=== PATIENT | female | born 1970 | race Caucasian/White ===

== ENCOUNTER 2024-10-14 18:48 | Emergency (ER) | payer OTHER, SELFPAY ==
[2024-10-14 18:56] VITALS: BP 124/62; PULSE 62; RESP 16; TEMP 36.2; O2SAT 94
--- OUTSIDE RECORDS SUMMARY | 2024-10-14 18:56 | XMS_ITS | Referral Summary ---
Author Organization [facility] Healthcare Address [address] [place] [address] Care Team Providers Care Fast Food Sales Assistant Name Role Phone Sohail Moura MD Unavailable [phone] Pam Fabian NP Primary Care Provider Encounters Date Type Department Care Team Description 07/26/2024 Results Follow-Up [facility] [address] [place] [address] Sofi Ryan RN 07/26/2024 11:29 AM ICE SKATING TEACHER - 07/26/2024 2:42 PM ICE SKATING TEACHER Emergency [facility] [address] [place] [address] Maricruz Anderson MD SVT (supraventricular tachycardia) (Primary Dx) Discharge Disposition: Discharge to home or self care from Last 3 Months Allergies Active Allergy Reactions Criticality Noted Date Comments Adhesive Rash Medium 09/14/2021 Medications acetaminophen (TYLENOL) 325 mg tablet daily [address] (CYMBALTA) 60 mg capsule Take 1 capsule (60 mg total) by mouth daily 0 Active atorvastatin (LIPITOR) 20 mg tablet Take 1 tablet (20 mg total) by mouth daily 2 Active folic acid (FOLVITE) 1 mg tablet Take 1 tablet (1 mg total) by mouth daily 2 Active latanoprost (XALATAN) 0.005 % ophthalmic solution Administer 1 drop into both eyes nightly 1 Active sertraline (ZOLOFT) 100 mg tablet Take 1 tablet (100 mg total) by mouth daily 2 Active topiramate (TOPAMAX) 50 mg tablet Take 1 tablet (50 mg total) by mouth 2 (two) times a day 2 Active cholecalciferol (VITAMIN D-3) 50,000 unit capsule Take 1 capsule (50,000 Units total) by mouth once a week Active busPIRone (BUSPAR) 15 mg tabletIndications: Generalized Anxiety Disorder Take 1 tablet (15 mg total) by mouth 4 (four) times a day Active rOPINIRole (REQUIP) 0.5 mg tablet Take 1 tablet (0.5 mg total) by mouth 2 (two) times a day Active ondansetron ODT (ZOFRAN-ODT) 4 mg disintegrating tablet Dissolve 1 tablet oral every 4 hours as needed for nausea or vomiting. 15 tablet 3 Active traZODone (DESYREL) 50 mg tablet Take 2 tablets (100 mg total) by mouth nightly 3 Active flecainide (TAMBOCOR) 50 mg tabletIndications: Paroxysmal atrial fibrillation (HCC) Take 1 tablet (50 mg total) by mouth 2 (two) times a day 60 tablet 11 4 Active apixaban (ELIQUIS) 5 mg tabletIndications: atrial fibrillation Take 1 tablet (5 mg total) by mouth 2 (two) times a day 180 tablet 3 4 Active naproxen (NAPROSYN) 500 mg tablet Take 1 tablet (500 mg total) by mouth 2 (two) times a day with meals 30 tablet 4 Active methocarbamoL (ROBAXIN) 500 mg tablet Take 1 tablet (500 mg total) by mouth 2 (two) times a day 20 tablet 4 Active metoprolol tartrate (LOPRESSOR) 50 mg immediate release tabletIndications: Paroxysmal atrial fibrillation (HCC) Take 1 tablet (50 mg total) by mouth 2 (two) times a day 60 tablet 4 Active HYDROcodone-acetam inophen (NORCO) 5-325 mg per tabletIndications: Pain Take 1 tablet by mouth every 6 (six) hours as needed for pain for up to 10 doses 10 tablet 5 Active mupirocin (BACTROBAN) 2 % ointment Apply topically 3 (three) times a day 22 g 5 Active naproxen (NAPROSYN) 500 mg tablet Take 1 tablet (500 mg total) by mouth 2 (two) times a day with meals 30 tablet 5 Active metoprolol tartrate (LOPRESSOR) 50 mg immediate release tablet Take 1 tablet (50 mg total) by mouth 2 (two) times a day 60 tablet 5 Active Active Problems Problem Noted Date Diagnosed Date Chest discomfort 10/16/2022 Morbid (severe) obesity due to excess calories 0 06/19/2022 Body mass index 40.0-44.9, adult ([facility]) 06/19 Palpitations 06/18/2022 SVT (supraventricular tachycardia) 06/18/2022 Paroxysmal atrial fibrillation 06/18/2022 Acute maxillary sinusitis 06/16/2020 Suspected COVID-19 virus infection 06/16/2020 Anxiety 12/15/2019 Cervical strain, acute, initial encounter 2019 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 I recommend that you stop using ALL acetaminophen containing products and discuss this with your provider immediately. No one should ever take more than 3000 mg total of all acetaminophen in a 24 hour period of time, but with your history, you probably should not take any at all until you have further evaluation. Follow up as soon as possible with your primary care provider or ER if symptoms develop or worsen Body mass index (BMI) of 40.0-44.9 in adult 10/06 Overview (11/10/2019): Last Assessment & Plan: Condition: patient reports improvement Educated patient on normal BMI range of 18.5 to 24.9 Advised to monitor nutrition to not exceed caloric needs, or as indicated by PCP in order to maintain a healthy weight and BMI. Advised to engage in aerobic physical activity, if indicated to be safe by PCP, to assist with maintaining a healthy weight and BMI. Advised to follow up with PCP to address nutrition as needed to assist with reaching or maintaining a healthy weight and BMI. Follow up in: one month Chronic right shoulder pain 10/22/2019 Overview (11/10/2019): Last Assessment & Plan: Condition: stable Follow up in: one month Financial difficulties 10/22/2019 Overview (11/10/2019): Last Assessment & Plan: Condition: stable Follow up in: one month Major depressive disorder 10/22/2019 Overview (11/10/2019): Last Assessment & Plan: Condition: stable No recent mental health visit. Advised to follow up Take medications as ordered by Provider; notify Provider if you cannot take medications as ordered or are having difficulties or side-effects from medications (do not stop medications without notifying Provider). If symptoms worsen or do not improve/stabilize, notify health care provider right away. If thoughts of harming self or others notify health care provider immediately &/or seek urgent/emergent care including calling Suicide Hotline ( ) or 081. Follow up in one month with Psychologist/Counselor/SupportGroup/Psychiatrist and PCP Seasonal allergies 10/22/2019 Overview (11/10/2019): Grass, worse this time of year Last Assessment & Plan: Condition: worsening, due to season I recommend you take an over the counter allergy medicine IF not contraindicated by your primary care provider. There are many different allergy medicines such as loratadine, cetrizine, Zyzal, benadryl or generic Flonase (fluticason) nasal spray. Some of these medicines can make you sleepy so don't drive until you know how they affect you. You may try to take them at night before bed. Many people have good results with allergy nasal sprays (NOT decongestant nasal sprays). When using an allergy nasal spray, tilt the head down and spray to the sides of the nose. Do a gently sniff to help the medicine coat the mucous membranes of the nasal cavity. You don't want to taste the medicine going down your throat because that is not getting where it will be the most effective. Use daily during allergy season for the most effectiveness. If you find that you are too dry because of the nasal spray, try using every other day. Other things you can do to help with seasonal allergies are; not sleeping with windows open. Be sure to change your air filters on your furnace and air conditioner regularly and rinsing your nose out with saline after going outside and exposures to allergens like pollen. Sometimes an over the counter allergy eye drop can be very beneficial for both nose and eyes. Don't take an eye drop that gets the red out . Specifically look for one that says it is for allergies. If these suggestions don't help and/or your symptoms continue to worsen, please see your primary care provider for follow up, Follow up in: as needed with your primary care provider or specialist Takes dietary supplements 10/22/2019 Overview (11/10/2019): Reports use of fit affinity Last Assessment & Plan: Condition: unknown Follow up: We discussed that I highly recommend you call your primary care provider to let her know what supplements you are taking, to make sure they will not interact with any of your other medications and cause harm. Acute exacerbation of chronic low back pain 09/06 Overview (11/10/2019): Last Assessment & Plan: Condition: worsening Take pain medication as prescribed. Practice non-pharmacological pain reduction techniques/interventions such as, deep breathing exercises, massage, gel packs, if indicated to be safe by PCP. Monitor for worsening of back pain in combination with other signs and symptoms of worsening disease and see PCP as soon as possible. Follow up in: one month Osteoarthrosis 05/01/2019 Dog bite of right hand 04/15/2019 Contusion of right hand 04/15/2019 Dog bite of right forearm 04/15/2019 Abrasion of left forearm 04/15/2019 Lumbar strain, initial encounter 04/15/2019 Centrilobular emphysema 04/13/2019 EDITH (obstructive sleep apnea) 04/13/2019 Pulmonary HTN 04/13/2019 Other problems related to lifestyle 03/20/2019 Benign essential hypertension 03/16/2019 Morbid obesity 03/03/2019 ROYCE (generalized anxiety disorder) 03/02/2019 COPD exacerbation 03/02/2019 Backache 12/16/2017 Encounter for long-term (current) use of other m edications 12/16/2017 Arthralgia of hand 10/19/2016 Chronic gastric ulcer 10/19/2016 Adjustment disorder with anxiety 05/22/2016 Knee pain 08/15/2014 Overview (09/13/2016): Knee pain Current smoker 08/15/2014 Overview (09/13/2016): Smoker Acute bronchitis Immunizations Immunization Administration Dates Next Due Influenza, Quadrivalent, Spl it, Preservative Free, Intramuscular 03/08/2019 Social History Tobacco Use Types Packs/Day Years Used Date Smoking Tobacco: Every Day Vaping Smokeless Tobacco: Never Tobacco Cessation:Ready to Q uit: Not Asked; Counseling Given: Not Answered Comments:one cigarette a day Alcohol Use Standard Drinks/Week Comments Never 0 (1 standard drink = 0.6 oz pur e alcohol) AUDIT-C Answer Date Recorded Q1: How often do you have a drink containing alcohol? Never 10/03/2022 Q2: How many drinks containi ng alcohol do you have on a typical day when you are drinking? Patient does not drink Q3: How often do you have si x or more drinks on one occasion? Never 10/03/2022 PHQ-2 Answer Date Recorded PHQ-2 Score 0 03/03/2019 Personal Safety Answer Date Recorded Have you ever been in or are you currently in a harmful physical or emotional relationship or is someone making you feel afraid or unsafe? Denies 07/26/2024 Comments No Sex and Gender Information Value Date Recorded Sex Assigned at Not on file Legal Sex Female 2:24 AM ICE SKATING TEACHER Gender Identity Not on file Sexual Orientation Not on file Occupation Industry Job Start Date Job End Date unemployed Not on file Not on file Not on file Last Filed Vital Signs Vital Sign Reading Time Taken Comments Blood Pressure 133/65 07/26/2024 1:00 PM ICE SKATING TEACHER Pulse 95 07/26/2024 1:15 PM ICE SKATING TEACHER Temperature 36.5 C (97.7 F) 07/26/2024 11:39 AM ICE SKATING TEACHER Respiratory Rate 13 07/26/2024 1:15 PM ICE SKATING TEACHER Oxygen Saturation 93% 07/26/2024 1:15 PM ICE SKATING TEACHER Inhaled Oxygen Concentration - - Weight 108.9 kg (240 lb) 07/26/2024 11:38 AM ICE SKATING TEACHER Height 170.2 cm (5' 7 ) 07/11/2024 2:28 PM ICE SKATING TEACHER Body Mass Index 37.59 07/11/2024 2:28 PM ICE SKATING TEACHER Plan of Treatment Not on file Medical Devices Implanted Type Area Cargo And Container Inspector Device Identifier Shelf Expiration Date Model / Serial / Lot [employer] Vascade Mvp 6-12fr Venous Closure [id number] - [id number] Implanted:Qty : 1 on 10/03/2022 by Thierno Woo MD at [facility] Collagen Right: Femoral Vein [employer] 05/22/2024 800-612C- [id number] / / [id number] [employer] Vascade Mvp 6-12fr Venous Closure [id number] - [id number] Implanted:Qty : 1 on 10/03/2022 by Thierno Woo MD at [facility] Collagen Right: Femoral Vein [employer] 05/22/2024 800-612C- [id number] / / [id number] [employer] Vascade Mvp 6-12fr Venous Closure [id number] - [id number] Implanted:Qty : 1 on 10/03/2022 by Thierno Woo MD at [facility] Collagen Right: Femoral Vein [employer] 05/22/2024 800-612C- [id number] / / [id number] [employer] Device Closure Vascade Od5 Fr Femoral Artery [id number] - [id number] Implanted:Qty : 1 on 10/03/2022 by Thierno Woo MD at [facility] Collagen Left: Femoral Vein [employer] 06/30/2024 [id number] / / [id number] Procedures Procedure Name Priority Date/Time Associated Diagnosis Comments TROPONIN I HIGH-SENSITIVITY 2-HOUR Timed 07/26/2024 1:41 PM ICE SKATING TEACHER [place] CRITICAL CARE ILL/INJURED PATIENT INIT 30-74 MIN Routine 07/26/2024 12:06 PM ICE SKATING TEACHER XR CHEST 1 VIEW ED 07/26/2024 12:05 PM ICE SKATING TEACHER ECG 12-LEAD STAT 07/26/2024 11:57 AM ICE SKATING TEACHER ECG 12-LEAD Routine 07/26/2024 11:55 AM ICE SKATING TEACHER PRO B-TYPE NATRIURETIC PEPTIDE STAT 07/26/2024 11:45 AM ICE SKATING TEACHER EGFR STAT 07/26/2024 11:45 AM ICE SKATING TEACHER DIFFERENTIAL AUTO STAT 07/26/2024 11: 45 AM ICE SKATING TEACHER TROPONIN I HIGH-SENSITIVITY SERIES (BASELINE, 2HR, 4HR, 6HR) STAT 07/26/2024 11:45 AM ICE SKATING TEACHER PHOSPHORUS Routine 07/26/2024 11:45 AM ICE SKATING TEACHER MAGNESIUM Routine 07/26/2024 11:45 AM ICE SKATING TEACHER CBC WITH AUTO DIFFERENTIAL STAT 07/26/2024 11:45 AM ICE SKATING TEACHER COMPREHENSIVE METABOLIC PANEL STAT 07/26/2024 11:45 AM ICE SKATING TEACHER INFLUENZA A/B, RSV, AND COVID-19 PCR STAT 07/26/2024 11:45 AM ICE SKATING TEACHER SCREENING MAMMOGRAM BILATERAL W SATURNINO Schedule Routine, Read Routine (OP Routine) 03/22/2021 10:57 AM CDT Encounter for screening mammogram for malignant neoplasm of breast PAP WITH REFLEX TO HIGH RISK HPV Routine 03/20/2021 10:52 AM CDT from Last 3 Months or Most Recently Relevant to Health Maintenance Results * (ABNORMAL) Troponin I high-sensitivity 2-hour (07/26/2024 1:41 PM ICE SKATING TEACHER) Trop I hs 18(H) <=17 ng/L Comment: Interpretive Data For further hscTnI resources including the diagnostic algorithm and an aid in interpretation, copy and paste this link: [email or web address] Current Interpretive Data last revised 2019. Trop I hs delta 8 ng/L [facility] Trop I hs interp Equivocal [facility] Blood 07/26/2024 1:41 PM ICE SKATING TEACHER 07/26/2024 1:45 PM ICE SKATING TEACHER us Adri Underwood MD LAB BLOOD ORDERABLES Final Resu lt [facility] Department [place] [address] * [place] CRITICAL CARE ILL/INJURED PATIENT INIT 30-74 MIN (07/26/2024 12:06 PM ICE SKATING TEACHER) Narrative Maricruz Anderson MD - 07/26/2024 12:06 PM ICE SKATING TEACHER Maricruz Anderson MD 07/26/2024 3:20 PM Critical Care Performed by: Maricruz Anderson MD Authorized by: Maricruz Anderson MD Critical care provider statement: As reflected in the history, physical exam, orders, notes, and/or MDM, I was personally present while the patient was critically ill and provided critical care services for 33 minutes, excluding time involved in separately billable procedures. Critical care was necessary to treat or prevent imminent or life-threatening deterioration of the following condition(s): tachy/kelsey arrhythmic event Critical care was time spent by me providing the following: continuous telemetry, continuous pulse oximetry and serial bedside patient exams initiation of rate controlling agent I provided emergent necessary critical care medicine services to this patient. I ordered and reviewed test results and/or imaging studies. I spent time discussing the management of this critically ill patient with consultants and the medical staff. I spent time discussing the management and therapeutic options for this critically ill patient with the patient themselves or with the appropriate designated surrogate decision-maker. I spent time documenting in the medical record. us Maricruz Anderson MD IN CLINIC/BEDSIDE ORD ERABLES Final Result * XR Chest 1 View (07/26/2024 12:05 PM ICE SKATING TEACHER) Anatomical Region Laterality Modality Body, Chest N/A Computed Radiogr aphy 07/26/2024 12:0 6 PM ICE SKATING TEACHER Impressions 07/26/2024 12:06 PM ICE SKATING TEACHER Comparison is made to chest radiograph dated 07/11/2024. No pulmonary consolidation, pleural effusion, or pneumothorax. Cardiomediastinal silhouette within normal limits. Spinal stimulator leads overlie the lower thoracic spine. Electronically signed by: Jeniffer Gutierrez M.D. Narrative 07/26/2024 12:06 PM ICE SKATING TEACHER EXAMINATION: 1 view chest radiograph Procedure Note Jeniffer Gutierrez MD - 07/26/2024 EXAMINATION: 1 view chest radiograph IMPRESSION: Comparison is made to chest radiograph dated 07/11/2024. No pulmonary consolidation, pleural effusion, or pneumothorax. Cardiomediastinal silhouette within normal limits. Spinal stimulator leads overlie the lower thoracic spine. Electronically signed by: Jeniffer Gutierrez M.D. Maricruz Anderson MD IMG XR PROCEDURES Fin al Result * ECG 12-LEAD (07/26/2024 11:57 AM ICE SKATING TEACHER) Narrative [facility] - 07/26/2024 11:57 AM ICE SKATING TEACHER Maricruz Anderson MD 07/26/2024 11:58 AM ECG 12 lead Date/Time: 07/26/2024 11:57 AM Performed by: Maricruz Anderson MD Authorized by: Maricruz Anderson MD Quality: Tracing quality: Limited by artifact Comments: EKG Interpretation Interpreted by ED physician in absence of a broker Ventricular rate: 137 bpm Rhythm: atrial flutter with variable block [place]: Normal Intervals: normal QRS duration Other findings: nonspecific ST changes Interpretation: abnormal EKG, rapid suprventricular tachycardia, no stemi Compared to priors: changes noted as compared to EKG from 07/11/24 Procedure Note Maricruz Anderson MD - 07/26/2024 11:57 AM CST Procedure ECG 12 lead Date/Time: 07/26/2024 11:57 AM Performed by: Maricruz Anderson MD Authorized by: Maricruz Anderson MD Quality: Tracing quality: Limited by artifact Comments: EKG Interpretation Interpreted by ED physician in absence of a broker Ventricular rate: 137 bpm Rhythm: atrial flutter with variable block [place]: Normal Intervals: normal QRS duration Other findings: nonspecific ST changes Interpretation: abnormal EKG, rapid suprventricular tachycardia, no stemi Compared to priors: changes noted as compared to EKG from 07/11/24 Maricruz Adnerson MD 07/26/24 1158 Maricruz Anderson MD ECG ORDERABLES Final Result [facility] * ECG 12-LEAD (07/26/2024 11:55 AM ICE SKATING TEACHER) Narrative [facility] - 07/26/2024 11:55 AM ICE SKATING TEACHER Maricruz Anderson MD 07/26/2024 11:56 AM ECG 12 lead Date/Time: 07/26/2024 11:55 AM Performed by: Maricruz Anderson MD Authorized by: Maricruz Anderson MD Comments: EKG Interpretation Interpreted by ED physician in absence of a broker Ventricular rate: 94 bpm Rhythm: nsr [place]: Normal Intervals: normal Other findings: no acute ischemia Interpretation: normal EKG Compared to priors: no longer in a flutter Procedure Note Maricruz Anderson MD - 07/26/2024 11:55 AM CST Procedure ECG 12 lead Date/Time: 07/26/2024 11:55 AM Performed by: Maricruz Anderson MD Authorized by: Maricruz Anderson MD Comments: EKG Interpretation Interpreted by ED physician in absence of a broker Ventricular rate: 94 bpm Rhythm: nsr [place]: Normal Intervals: normal Other findings: no acute ischemia Interpretation: normal EKG Compared to priors: no longer in a flutter Izaiah Andersonison Glory, MD 07/26/24 1156 us Maricruz Anderson MD ECG ORDERABLES Final Result Performing Organization Address City/[facility]/ZIP Co de Phone Number [facility] * Influenza A/B, RSV, and COVID-19 PCR Nasopharyngeal (07/26/2024 11:45 AM ICE SKATING TEACHER) Pathologist [facility] COVID-19 RNA Negative Negative [facility] Influenza A RNA Negative Negative [facility] Influenza B RNA Negative Negative [facility] RSV RNA Negative Negative [facility] Comment: Interpretive data: Testing performed by [facility] ([phone]). This test is performed using the BioSET Xpert Xpress CoV-2/Flu/RSV plus assay. This is a multiplex, real-time reverse transcriptase PCR assay intended for the qualitative detection of nucleic acid from SARS-CoV-2, influenza A, influenza B, and respiratory syncytial virus. This assay has been cleared by the [place] Food and Drug administration. The performance characteristics have been verified by the [facility]. Results must be considered in the clinical context, and a negative result does not rule out infection. Interpretive Data last revised 2023 Nasopharyngeal 07/26/2024 11 :45 AM ICE SKATING TEACHER 07/26/2024 11:58 AM ICE SKATING TEACHER Narrative [facility] - 07/26/2024 12:56 PM ICE SKATING TEACHER Is the Patient experiencing symptoms consistent with COVID?->Yes Adri Underwood MD LAB MICROBIOLOGY - GENERAL YOLETTE PEREZ Final Result Performing Organization Address City/[facility] Co de Phone Number [facility] Department [place] [address] [facility] * Troponin I high-sensitivity series (baseline, 2hr, 4hr, 6hr) (07/26/2024 11:45 AM ICE SKATING TEACHER) [facility] Trop I hs 10 <=17 ng/L Comment: Interpretive Data For further [facility] resources including the diagnostic algorithm and an aid in interpretation, copy and paste this link: [email or web address] Current Interpretive Data last revised 2019. Blood 07/26/2024 11:4 5 AM ICE SKATING TEACHER 07/26/2024 11:55 AM ICE SKATING TEACHER Adri Underwood MD LAB BLOOD ORDERABLES Final Resu lt Performing Organization Address City/[facility]/ZIP Co de Phone Number [facility] Department [place] [address] * eGFR (07/26/2024 11:45 AM ICE SKATING TEACHER) eGFR 76 >=60 mL/min/1. 73 m2 Comment: Interpretive Data Reference Interval Normal >/= 90 mL/min/1.73m2 Mildly decreased* 60 - 89 mL/min/1.73m2 Mildly to moderately decreased 45 - 59 mL/min/1.73m2 Moderately to severely decreased 30 - 44 mL/min/1.73m2 Severely decreased 15 - 29 mL/min/1.73m2 Kidney Failure < 15 mL/min/1.73m2 *Relative to young adult level Estimated glomerular filtration rate is determined by the 2020 CKD-EPI equation recommended by the National Kidney Foundation (A Unifying Approach to GFR Estimation: Recommendations of the NKF-ASK Task Force on Reassessing the Inclusion of Race in Diagnosing Kidney Disease, JASN 202). The CKD-EPI equation should not be used for patients with unstable renal function and has not been validated in children and those over 70. Current interpretive data was last reviewed 2021. Blood 07/26/2024 11:4 5 AM ICE SKATING TEACHER 07/26/2024 11:55 AM ICE SKATING TEACHER us Adri Underwood MD LAB BLOOD ORDERABLES Final Resu lt Performing Organization Address City/[facility]/ZIP Co de Phone Number [facility] [place] [address] * (ABNORMAL) Differential, auto (07/26/2024 11:45 AM ICE SKATING TEACHER) Neutrophil abs 5.0 1.5 - 6.5 K/cumm Imm gran abs 0.0 0.0 - 0.1 K/cumm [facility] Lymphocyte abs 4.0(H) 0.8 - 3.3 K/cumm [facility] Monocyte abs 1.1(H) 0.2 - 0.8 K/cumm [facility] Eosinophil abs 0.1 0.0 - 0.5 K/cumm [facility] Basophil abs 0.1 0.0 - 0.1 K/cumm [facility] Neutrophil pct 48.2 % [facility] Comment: Interpretive Data Percent cell count reference ranges are not reported, since discordance with absolute values may lead to misinterpretation of CBC data. Current Interpretive Data was last revised on 2017. Imm gran pct 0.4 % [facility] Comment: Interpretive Data Percent cell count reference ranges are not reported, since discordance with absolute values may lead to misinterpretation of CBC data. Current Interpretive Data was last revised on 2017. Lymphocyte pct 38.8 % [facility] Comment: Interpretive Data Percent cell count reference ranges are not reported, since discordance with absolute values may lead to misinterpretation of CBC data. Current Interpretive Data was last revised on 2017. Monocyte pct 10.8 % [facility] Comment: Interpretive Data Percent cell count reference ranges are not reported, since discordance with absolute values may lead to misinterpretation of CBC data. Current Interpretive Data was last revised on 2017. Eosinophil pct 0.7 % [facility] Comment: Interpretive Data Percent cell count reference ranges are not reported, since discordance with absolute values may lead to misinterpretation of CBC data. Current Interpretive Data was last revised on 2017. Basophil pct 1.1 % [facility] Comment: Interpretive Data Percent cell count reference ranges are not reported, since discordance with absolute values may lead to misinterpretation of CBC data. Current Interpretive Data was last revised on 2017. Blood 07/26/2024 11:4 5 AM ICE SKATING TEACHER 07/26/2024 11:55 AM ICE SKATING TEACHER us Adri Underwood MD LAB BLOOD ORDERABLES Final Resu lt Performing Organization Address [facility]/ZIP Co de Phone Number [facility] Department [place] [address] * Pro B-type natriuretic peptide (07/26/2024 11:45 AM ICE SKATING TEACHER) NT-proBNP 162 <=300 pg/mL Comment: Interpretive Comments: A. Dyspnea in Acute Care Setting All Ages: < 300 pg/ml, acute heart failure unlikely. < 50 yrs: 300 - 450 pg/ml, further investigation warranted. > 450 pg/ml, acute heart failure likely. 50 - 74 yrs: 300 - 900 pg/ml, further investigation warranted. > 900 pg/ml, acute heart failure likely . > or = 75 yrs: 450 - 1800 pg/ml, further investigation warranted. > 1800 pg/ml, acute heart failure likely. B. Non-acute Setting < 75 yrs < 125 pg/ml, rules out heart failure. > or = 125 pg/ml, further investigation warranted. > or = 75 yrs < 450 pg/ml, rules out heart failure. > or = 450 pg/ml, further investigation warranted. - Knowledge of each individual patient's NT-proBNP range may be more useful than using similar cut-points for every patient. Please note that marked elevations in NT-proBNP levels may be observed in state other than Left Ventricular Congestive Failure, including: acute coronary syndromes, right heart strain/failure (including pulmonary embolism and cor pulmonale), critical illness, renal failure, as well as advanced age. - References: 1. Tahir PSENCER et.al. Eur Heart J. 2006:27:330-337. 2. Steph RW, Jeffrey SALAS. J. AM Aster Cardiol: Cardiovasc Imag. 2009;2: 216- 225. Interpretive Data Last Revised Date: 2018. Blood 07/26/2024 11:4 5 AM ICE SKATING TEACHER 07/26/2024 11:55 AM ICE SKATING TEACHER Maricruz Anderson MD LAB BLOOD ORDERABLES Final Result Performing Organization Address [facility]/ZIP Co de Phone Number [facility] Department [place] [address] * (ABNORMAL) CBC with auto differential (07/26/2024 11:45 AM ICE SKATING TEACHER) [facility] WBC 10.4(H) 3.8 - 9.9 K/cumm Hgb 15.7(H) 11.9 - 15.5 g/dL [facility] Hct 47.6(H) 35.6 - 45.5 % [facility] Plt 290 150 - 400 K/cumm [facility] MPV 9.3 9.1 - 12.3 fL [facility] RBC 5.55(H) 3.90 - 5.20 M/cumm [facility] MCV 85.8 81.3 - 96.4 fL [facility] MCH 28.3 27.1 - 33.3 pg [facility] MCHC 33.0 32.3 - 35.7 g/dL [facility] RDW CV 13.2 11.1 - 14.9 % [facility] RDW SD 41.5 35.7 - 48.1 fL [facility] NRBC abs 0.00 0.00 - 0.01 K/cumm [facility] Blood 07/26/2024 11:4 5 AM ICE SKATING TEACHER 07/26/2024 11:55 AM ICE SKATING TEACHER Adri Underwood MD LAB BLOOD ORDERABLES Final Resu lt [facility] [place] [address] * (ABNORMAL) Phosphorus (07/26/2024 11:45 AM ICE SKATING TEACHER) [facility] Phosphorus, pl 1.9(L) 2.3 - 4.5 mg/dL Blood 07/26/2024 11:4 5 AM ICE SKATING TEACHER 07/26/2024 11:55 AM ICE SKATING TEACHER Adri Underwood MD LAB BLOOD ORDERABLES Final Resu lt [facility] Department [place] [address] * Magnesium (07/26/2024 11:45 AM ICE SKATING TEACHER) Pathologist [facility] Magnesium 1.8 1.4 - 2.5 mg/dL Blood 07/26/2024 11:4 5 AM ICE SKATING TEACHER 07/26/2024 11:55 AM ICE SKATING TEACHER us Adri Underwood MD LAB BLOOD ORDERABLES Final Resu lt [facility] Department [place] [address] * (ABNORMAL) Comprehensive metabolic panel (07/26/2024 11:45 AM ICE SKATING TEACHER) [facility] Sodium 138 135 - 145 mmol/L Potassium, pl 3.6 3.3 - 4.9 mmol/L [facility] Chloride 103 97 - 110 mmol/L [facility] CO2 22 22 - 32 mmol/L [facility] Anion gap 13 2 - 15 mmol/L [facility] BUN 10 6 - 25 mg/dL [facility] Creatinine 0.89 0.60 - 1.10 mg/dL [facility] Glucose 116 70 - 199 mg/dL [facility] Comment: Interpretive Data Fasting glucose >/= 126 mg/dl is diagnostic for diabetes. Fasting is defined as no caloric intake for at least 8 hours. Fasting glucose between 100 mg/dl to 125 mg/dl is diagnostic of prediabetes. In a patient with classic symptoms of hyperglycemia or hyperglycemic crisis, a random glucose >/= 200 mg/dl is diagnostic for diabetes. In the absence of unequivocal hyperglycemia, results should be confirmed by repeat testing. The classification and Diagnosis of Diabetes Diabetes Care 202; 46: S19-S40. Current interpretive data was last revised 2022. Calcium 9.6 8.5 - 10.3 mg/dL [facility] Bilirubin, total 0.6 0.1 - 1.2 mg/dL [facility] Protein, pl 7.5 6.5 - 8.5 g/dL [facility] Albumin 4.3 3.5 - 5.0 g/dL [facility] Alk phos 134(H) 40 - 130 Units/L [facility] ALT 20 7 - 45 Units/L [facility] AST 19 10 - 45 Units/L [facility] Blood 07/26/2024 11:4 5 AM ICE SKATING TEACHER 07/26/2024 11:55 AM ICE SKATING TEACHER Adri Underowod MD LAB BLOOD ORDERABLES Final Resu lt [facility] [place] [address] * Screening Mammogram Bilateral [place] (03/22/2021 10:57 AM CDT) Anatomical Region Laterality Modality Breast Bilateral Mammography Narrative 03/22/2021 12:09 PM CDT BILATERAL DIGITAL MAMMOGRAPHY This is a baseline examination. Mammography Findings CAD (computer-aided detection) software was utilized. There are scattered fibroglandular densities that could obscure a lesion on mammography. No masses, significant calcifications or other abnormalities are seen. Impression There is no mammographic evidence of malignancy. Screening mammogram in 1 year is recommended. BI-RADS Category 1: Negative PATIENT LETTER SENT Emma Bunn DO IMG MAMMO PROCEDURES Fi nal Result * Pap with reflex to High Risk HPV (03/20/2021 10:52 AM CDT) Pap test 03/20/2021 10:5 2 AM CDT 03/20/2021 10:52 AM CDT Narrative 03/22/2021 9:39 AM CDT [facility] Department of Pathology [address] [place] [id number] Final Report with Addendum Note to Patients: This report may contain a detailed description of human tissue sent by a health care provider to the laboratory for pathologic evaluation. The content of this report is essential for diagnosis and may provide important critical findings. This information may be unfamiliar to patients to review without a medical professional present. It is advised that the patient review this report in the presence of a health care provider who can answer questions and explain the details. Patient Name: DENISE PERAZA Address: [address] [place] [address] Gender: F : 1970 (Age: 50) Service: Laboratory Location: Lab Hospital #: [id number] Patient Type: [facility] Lab Taken: 03/20/2021 Received: 03/20/2021 Accessioned:: 03/21/2021 Reported: 03/22/2021 Physician(s): Tiffani Torres D.O. Diagnosis: Source of Specimen: Imaged Thinprep Pap Test plus HPV - Underwriting Clerk Cytologic Material Specimen Adequacy: - Satisfactory for evaluation; endocervical/transformation zone component present General Category: - Negative for intraepithelial lesion or malignancy Interpretation/Results: - Numerous inflammatory cells present ROWENA Mckenzie(ASCP) Report Electronically Reviewed and Signed Out By ROWENA Mckenzie(ASC) 03/22/2021 09:39:39 Addenda: HPV Test Interpretation NEGATIVE for types 16, 18, 31, 33, 35, 39, 45, 51, 52, 56, 58, 59, 66 and 68. Test performed utilizing Gen-Probe Aptima assay. ROWENA Davis(ASCP) Report Electronically Reviewed and Signed Out By MARILIN DavisASC) 03/21/2021 14:47:29 Specimen(s) Received: A: Imaged Thinprep Pap Test plus HPV - Underwriting Clerk Cytologic Material Clinical History: Last Menstrual Period: 1-1.5 years The Pap test is a screening test used to aid in the detection of cervical cancer and its precursors. It should not be the sole means by which malignant and premalignant lesions are diagnosed. Both false negative and false positive results may occur. It also has poor sensitivity for the detection of endometrial lesions and should not be used to evaluate suspected endometrial abnormalities. For these reasons it is most important to obtain Pap tests at regular intervals. The performance characteristics of some immunohistochemical stains, fluorescence in-situ hybridization tests and immunophenotyping by flow cytometry cited in this report (if any) were determined by the Surgical Pathology Department at [facility] as part of an ongoing chemistry quality control analyst program and in compliance with federally mandated regulations drawn from the Clinical Laboratory Improvement Act of 1988 (CLIA '88). Some of these tests rely on the use of analyte specific reagents and are subject to specific labeling requirements by the US Food and Drug Administration. Such diagnostic tests may only be performed in a facility that is certified by the Department of Health and Human Services as a high complexity laboratory under CLIA '88. The FDA has determined that such clearance or approval is not necessary. This test is used for clinical purposes. It should not be regarded as investigational or for research. Nevertheless, federal rules concerning the medical use of analyte specific reagents require that the following disclaimer be attached to the report: This test was developed and its performance characteristics determined by the Surgical Pathology Department [facility]. It has not been cleared or approved by the U. S. Food and Drug Administration. Emma Bunn DO LAB CYTOLOGY ORDERABLES Final Result from Last 3 Months or Most Recently Relevant to Health Maintenance [place] [address] [place] [address] [facility] Advance Directives For more information, please contact: [phone] * Full Code (Latest Code Status on File) Date Activated Date Inactivated Comments 03/02/2019 6:55 PM 03/08/2019 10:23 PM Care Teams Fast Food Sales Assistant Relationship Specialty Start Date End Date Pam Fabian NP [address] [place] [address] PCP - General Nurse Practitioner 02/21/24 [place] [address] [address] [place] [address] Consulting Physician Pulmonary Disease 03/08/19
--- OUTSIDE RECORDS SUMMARY | 2024-10-14 18:56 | XMS_ITS | Patient Health Record ---
Author Organization [facility] Address [address] [place] [address] Care Team Providers Care Advocacy Director Name Role Phone Zoe Seymour Primary Care Provider Allergies No Known Allergies Reason For Referral No Information Medications Medication SIG (Take, Route, Frequency, Duration) Notes Start Date End Date Status hydrOXYzine HCl 50 MG 1 tablet as needed Orally three times a day Active Zoloft 100 MG 2 tablet Orally Once a day Active SEROquel 50 MG 1 tablet Orally twic e a day Active traZODone HCl 100 MG 1 tablet at bedtime Orally Once a day Not-Taking SEROquel 100 MG 1 tablet Orally bedt janee for 30 days 09/07/2024 Active LaMICtal 100 MG 1 tablet Orally Once a day Active SEROquel 50 MG 1 tablet in the AM O rally Once a day for 30 days 09/07/2024 Active Dilantin 30 MG 2 capsules Orally ev shannen day in AM for Migraines Not-Taki ng Topamax 50 MG 1 tablet Orally twic e a day Not-Taking busPIRone HCl 15 MG 1 tablet Orally Twic e a day Not-Taking LaMICtal 150 MG 1 tablet Orally Once a day for 30 day(s) 09/07/2024 Active Social History Tobacco Use: Social History Observation Description Date Details (start date - stop date) Current Smoker NA - NA Sex Assigned At : Social History Observation Description Sex Assigned At Female Tobacco Control (Standard) Question Answer Notes Tobacco use: Current smoker How often do you smoke cigarettes? Every day How many cigarettes a day do you smoke? 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) Active confirmed Problem Smoker (88773713) Smoker (F17.200) Active confirmed Problem Insomnia disorder related to another mental disorder (54604021) Insomnia disorder, with non-sleep disorder mental comorbidity, persistent (F51.05) Active confirmed Vital Signs Heart Rate 81 /min 09/07/2024 Temperature 97.8 degrees Fahrenheit 09/07/2024 Respiratory Rate 16 /min 09/07/2024 Blood pressure diastolic 84 mm Hg 09/07/2024 Oximetry 92 % 09/07/2024 Height 57 in 09/07/2024 Blood pressure systolic 136 mm Hg 09/07/2024 Weight 240 lbs 09/07/2024 BMI 51.93 kg/m2 09/07/2024 Encounters Encounter Location Date Provider Diagnosis [address] [address] 09/07/2024 Zoe Seymour Bipolar 2 disorder F31.81 ; Anxiety F41.9 ; Depression, major, recurrent, severe with psychosis F33.3 ; Insomnia disorder, with non-sleep disorder mental comorbidity, persistent F51.05 ; Post traumatic stress disorder F43.10 ; Dyskinesia, tardive G24.01 and Smoker F17.[address] [place] [address] 08/31/2024 Zoe Seymour [address] [address] 09/07/2024 Zoe Seymour Assessments Encounter Date Diagnosis (ICD Code) Assessment Notes Treatment Notes Treatment Clinical Notes Section Notes 09/07/2024 Anxiety (ICD-10 - F41.9) cont current meds Discussed ways to avoid or reduce anxiety causing triggers Increasing her seroquel for insomnia but could benefit anxiety 09/07/2024 Bipolar 2 disorder (ICD-10 - F31.81) Increased lamictal from 100mg daily to 150mg daily. Pt agreeable due to being [place]. Discussed med change in length. No rash reported -pt to mx F/U 6 weeks Written Rx given [place] Prescription Monitoring Program reviewed Please mx for signs and symptoms of : Neuroleptic malignant syndrome (NMS) is a rare and life-threatening reaction to the use of any antipsychotic medications.Symptoms of NMS include but not limited to:High fever (hyperthermia), Stiff, rigid muscles that can lead to eventual muscle breakdown, AMS, blood pressure changes, excessive sweating and excessive secretion of saliva.NMS is potentially life-threatening and requires immediate medical attention in a hospital setting. If this condition is suspected please seek emergent medical attention. Pt receptive Second generation antipsychotics (SGAs) have metabolic syndrome issues with weight gain, increase in prolactin, increased waist circumference, increased lipids, and increased glucose. Thus routine monitoring of weight, metabolic labs, etc. is indicated. A general rank ordering of antipsychotics that have the greatest to the least risk of metabolic effects is olanzapine, quetiapine, risperidone, ziprasidone, and aripiprazole. However, weight gain can occur with all of these drugs and considerable variability exists among patients receiving the same drug regarding the risk of metabolic effects. Anti-psychotic agents not only increase the risk of metabolic disorder, they also increase the risk of CVA, akathisia, and movement disorders including EPS or tardive dyskinesia (more common with first generation antipsychotics) and more. lamotrigine has a serious rashes requiring hospitalization and discontinue treatment including Rob Willis syndrome rare case of toxic epidermal necrolysis and cache related deaths. Other risk factor may include concomitant use of valproate acid derivative or exceeding initial lamotrigine does or does as clinician recommendation; most life-threatening rash of occurring first 2 to 8 week of treatment with isolated cases after prolonged treatment; though benign may occur, discontinue treatment at first sign of rash unless clearly not a drug related; TC treatment may not prevent trash from becoming life-threatening or permanently disabling or disfiguring. Comment reaction include, nausea/vomiting, dizziness/vertigo, visual disturbances, somnolence, ataxia, pruritus/rash, pharyngitis, headache, rhinitis, diarrhea, fever, asthenia, insomnia, tremor, abdominal pain, cough, accidental injury, constipation, dysmenorrhea, incoordination, anxiety, seizures, irritability, anorexia, xerostomia, and photosensitivity. Serious reactions include: Rash, severe; Cool Willis syndrome; toxic epidermal necrosis; injury edema, hypersensitivity reactions. Including fatal, multiple organ failure to safe fatal, rash with eosinophilia systemic symptoms, DIC, neutropenia, leukopenia, thrombocytopenia, pancytopenia, aplastic anemia, hemolytic anemia, i pancreatitis, hepatic failure, rhabdomyolysis, worsening of suicidal ideation, worsening of depression, cleft lip/palate [first trimester use] DO NOT change cosmetic, perfumes or soap for next 4 weeks. The patient was advice to take lamotrigine as prescribed the patient was instructed not to deviate from the prescription dosages. Stop lamotrigine is the first sign of rash. Patient was insisted to inform office if any of the serious side effect develops. 09/07/2024 Depression, major, recurrent, severe with psychosis (ICD-10 - F33.3) No SI/HI Cont current meds Please mx for signs and symptoms of serotonin syndrome include but not limited to: anxiety, agitation, high fever, sweating, confusion, tremors, restlessness, lack of coordination/hyperre flexia,clonus, major changes in blood pressure, and rapid heart rate. Call 911 / seek immediate medical attention if any of these signs or symptoms and call the office to make provider aware. Pt receptive Pt aware to call 911 and or [phone] if having thoughts of suicide plan or intent or having homicidal ideations. Pt voiced understanding. 09/07/2024 Insomnia disorder, with non-sleep disorder mental comorbidity, persistent (ICD-10 - F51.05) increase seroquel from 50mg bid to 50mg in am and 50mg ii at hs #90 Pt agreeable due to taking two seroquel at hs and not having one for daytime. Discussed medication in length. Written RX given 09/07/2024 Post traumatic stress disorder (ICD-10 - F43.10) cont current meds - pt reports stable 09/07/2024 Dyskinesia, tardive (ICD-10 - G24.01) unable to take TD meds per record librarian. Got new teeth so she has noticed more lip licking. But reports it to being fine. AIMS last done on 05/11/24 and scored 10. Needs AIMS Q 6mth or prn. Due next/future visit 09/07/2024 Smoker (ICD-10 - F17.200) Encourage smoking cessation- pt not receptive at this time. Can call [phone] , you can speak confidentially with a highly trained quit strength and conditioning coach. ( ) Plan Of Treatment Next Appt Details Provider Name:Zoe Conte , 12/07/2024 01:00:00 PM, [address] [place], [address], Insurance Providers Payer Name Payer Address Payer Phone Subscriber Number Group Number Insured Name Patient Relationship to Insured Coverage Start Date Coverage End Date [address] [phone] [id number] Hue Peraza Self - patient is the insured 5 Medical (General) History Surgical History Surgery Date(Month/Year) TOTAL HYSTERECTOMY cholecystectomy right knee replacement back stimulator
--- OUTSIDE RECORDS SUMMARY | 2024-10-14 18:56 | XMS_ITS | Clinical Summary ---
Author Organization [facility] Healthcare Address [address] [place] [address] Care Team Providers Care Truck Loader And Unloader Name Role Phone Sohail Moura MD Unavailable [phone] Pam Fabian NP Primary Care Provider Allergies Active Allergy Reactions Criticality Noted Date [...] 0 06/19/2022 Body mass index 40.0-44.9, adult ([facility]/HCC) 06/19 Palpitations 06/18/2022 SVT (supraventricular tachycardia) 06/18/2022 [...] including calling Suicide Hotline ( ) or 911. Follow up in one month with Psychologist/Counselor/SupportGroup/Psychiatrist [...] smoker 08/15/2014 Overview (09/13/2016): Smoker Acute bronchitis Encounters Date Type Department Care Team Description 07/26/2024 11:29 AM MANGLE ROLL OPERATOR - 07/26/2024 2:42 PM MANGLE ROLL OPERATOR Emergency [facility] Emergency Department [address] [place] [address] Maricruz Anderson MD SVT (supraventricular tachycardia) (Primary Dx) Discharge Disposition: Discharge to home or self care 07/26/2024 Results Follow-Up [facility] Emergency Department [address] [place] [address] Sofi Ryan RN from Last 3 Months Immunizations Immunization Administration Dates Next Due Influenza, Quadrivalent, Spl it, Preservative Free, Intramuscular 03/08/2019 Surgical History Surgery Date Site/Laterality Comments OTHER SURGICAL HISTORY 2011 Retropatellar chondromalacia/synovitis: Right knee arthroscopic retropatellar chondroplasty/partial synovectomy CHOLECYSTECTOMY HYSTERECTOMY TOTAL KNEE ARTHROPLASTY Right Medical History Medical History Date Comments Hx Other Medical Retropatellar c hondromalacia/synovitis Hx Other Medical R total knee re placement 04-25-14; Comments: JOSE 05/10/2014 - COPD (chronic obstructive pu lmonary disease) ([facility]) Awareness under anesthesia Arrhythmia SVT (supraventricular tachycardia) EDITH (obstructive sleep apnea) 04/13/2019 Family History Medical History Relation Name Comments Other Father 2 Heart; Cause of : Heart Diabetes Mother 2 Diabetes mellit ; Heart disease Mother 2 Heart problems ; Hypertension Mother 2 Hypertension; Relation Name Status Comments Father 1 (Age 70) Father 2 Mother 1 Alive Mother 2 Social History Tobacco Use Types Packs/Day Years [...] on file Legal Sex Female 2:24 AM MANGLE ROLL OPERATOR Gender Identity Not on file Sexual Orientation Not on file Occupation Industry Job Start Date Job End Date unemployed Not on file Not on file Not on file Obstetrics History Para Term AB IAB SAB Ectopic Multiple Livin g Live Births 9 4 4 5 5 4 4 Date Outcome GA Total Labor Labor/2nd/3rd Weight Sex Type Anes PTL Caroline A1 A5 Name Clin SAB SAB SAB SAB SAB 1988 Term M Vag-S pont Living 1990 Term M Vag-S pont Living 1999 Term F Vag-S pont Living 2000 Term M Vag-S pont Living Last Filed Vital Signs Vital Sign Reading Time Taken Comments Blood Pressure 133/65 07/26/2024 1:00 PM MANGLE ROLL OPERATOR Pulse 95 07/26/2024 1:15 PM MANGLE ROLL OPERATOR Temperature 36.5 C (97.7 F) 07/26/2024 11:39 AM MANGLE ROLL OPERATOR Respiratory Rate 13 07/26/2024 1:15 PM MANGLE ROLL OPERATOR Oxygen Saturation 93% 07/26/2024 1:15 PM MANGLE ROLL OPERATOR Inhaled Oxygen Concentration - - Weight 108.9 kg (240 lb) 07/26/2024 11:38 AM MANGLE ROLL OPERATOR Height 170.2 cm (5' 7 ) 07/11/2024 2:28 PM MANGLE ROLL OPERATOR Body Mass Index 37.59 07/11/2024 2:28 PM MANGLE ROLL OPERATOR Plan of Treatment Health Maintenance Due Date Last Done Comments Colon Cancer Screening-Colonoscopy 1970 Hepatitis C Screening 1970 DTaP/Tdap/Td Vaccine (1 - Tdap) 1979 Hepatitis B Screening 1986 Pneumococcal vaccine <65 (1 of 2 - PCV) 1987 Zoster Vaccine (1 of 2) 2018 Depression Screening 03/02/2020 03/02/2019 Breast Cancer Screening-Mammogram 03/22/2022 021 Regular Well Visit/Exam 18-64 05/15/2024 05/15/2023, 03/20/2021 Cervical Cancer Screening Discontinued 03/20/2021 Influenza Vaccine Completed 07/13/2024, 03/08/2019 Medical Devices Implanted Type Area Desktop Support Consultant Device Identifier Shelf Expiration Date Model / Serial / Lot [employer] Vascade Mvp 6-12fr Venous Closure [id number] - [id number] Implanted:Qty : 1 on 10/03/2022 by Thierno Woo MD at [facility] Collagen Right: Femoral Vein [employer] 05/22/2024 800-612C- [id number] / / [id number] [employer] Vascade Mvp 6-12fr Venous Closure [id number] - [id number] Implanted:Qty : 1 on 10/03/2022 by Thierno Woo MD at [facility] Collagen Right: Femoral Vein [employer] 05/22/2024 800-612C- [id number] / / [id number] [employer] Vascade Mvp 6-12fr Venous Closure [id number] - [id number] Implanted:Qty : 1 on 10/03/2022 by Thierno Woo MD at [facility] Collagen Right: Femoral Vein [employer] 05/22/2024 800-612C- [id number] / / [id number] [employer] Device Closure Vascade Od5 Fr Femoral Artery [id number] - [id number] Implanted:Qty : 1 on 10/03/2022 by Thierno Woo MD at [facility] Collagen Left: Femoral Vein [employer] 06/30/2024 [id number] / / [id number] Procedures Procedure Name Priority Date/Time Associated Diagnosis Comments TROPONIN I HIGH-SENSITIVITY 2-HOUR Timed 07/26/2024 1:41 PM MANGLE ROLL OPERATOR IN CRITICAL CARE ILL/INJURED PATIENT INIT 30-74 MIN Routine 07/26/2024 12:06 PM MANGLE ROLL OPERATOR XR CHEST 1 VIEW ED 07/26/2024 12:05 PM MANGLE ROLL OPERATOR ECG 12-LEAD STAT 07/26/2024 11:57 AM MANGLE ROLL OPERATOR ECG 12-LEAD Routine 07/26/2024 11:55 AM MANGLE ROLL OPERATOR PRO B-TYPE NATRIURETIC PEPTIDE STAT 07/26/2024 11:45 AM MANGLE ROLL OPERATOR EGFR STAT 07/26/2024 11:45 AM MANGLE ROLL OPERATOR DIFFERENTIAL AUTO STAT 07/26/2024 11: 45 AM MANGLE ROLL OPERATOR TROPONIN I HIGH-SENSITIVITY SERIES (BASELINE, 2HR, 4HR, 6HR) STAT 07/26/2024 11:45 AM MANGLE ROLL OPERATOR PHOSPHORUS Routine 07/26/2024 11:45 AM MANGLE ROLL OPERATOR MAGNESIUM Routine 07/26/2024 11:45 AM MANGLE ROLL OPERATOR CBC WITH AUTO DIFFERENTIAL STAT 07/26/2024 11:45 AM MANGLE ROLL OPERATOR COMPREHENSIVE METABOLIC PANEL STAT 07/26/2024 11:45 AM MANGLE ROLL OPERATOR INFLUENZA A/B, RSV, AND COVID-19 PCR STAT 07/26/2024 11:45 AM MANGLE ROLL OPERATOR SCREENING MAMMOGRAM BILATERAL W SATURNINO Schedule Routine, Read Routine (OP Routine) 03/22/2021 10:57 AM CDT Encounter for screening mammogram for malignant neoplasm of breast PAP WITH REFLEX TO HIGH RISK HPV Routine 03/20/2021 10:52 AM CDT from Last 3 Months or Most Recently Relevant to Health Maintenance Results * (ABNORMAL) Troponin I high-sensitivity 2-hour (07/26/2024 1:41 PM MANGLE ROLL OPERATOR) Trop I hs 18(H) <=17 ng/L Comment: Interpretive Data For further hscTnI resources including the diagnostic algorithm and an aid in interpretation, copy and paste this link: https://bjhlab.testcatalog.org/show/hsTrop-1 Current Interpretive Data last revised 2019. Trop I hs delta 8 ng/L [facility] Trop I hs interp Equivocal [facility] Blood 07/26/2024 1:41 PM MANGLE ROLL OPERATOR 07/26/2024 1:45 PM MANGLE ROLL OPERATOR Adri Underwood MD LAB BLOOD ORDERABLES Final Resu lt [facility] Department [place] [address] * IN CRITICAL CARE ILL/INJURED PATIENT INIT 30-74 MIN (07/26/2024 12:06 PM MANGLE ROLL OPERATOR) Narrative Maricruz Anderson MD - 07/26/2024 12:06 PM MANGLE ROLL OPERATOR Maricruz Anderson MD 07/26/2024 3:20 PM Critical [...] spent time documenting in the medical record. Maricruz Anderson MD IN CLINIC/BEDSIDE ORD ERABLES Final Result * XR Chest 1 View (07/26/2024 12:05 PM MANGLE ROLL OPERATOR) Anatomical Region Laterality Modality Body, Chest N/A Computed Radiogr aphy 07/26/2024 12:0 6 PM MANGLE ROLL OPERATOR Impressions 07/26/2024 12:06 PM MANGLE ROLL OPERATOR Comparison is made to chest radiograph dated 07/11/2024. No pulmonary consolidation, pleural effusion, or pneumothorax. Cardiomediastinal silhouette within normal limits. Spinal stimulator leads overlie the lower thoracic spine. Electronically signed by: Jeniffer Gutierrez M.D. Narrative 07/26/2024 12:06 PM MANGLE ROLL OPERATOR EXAMINATION: 1 view chest radiograph Procedure Note [...] Result * ECG 12-LEAD (07/26/2024 11:57 AM MANGLE ROLL OPERATOR) Narrative [facility] - 07/26/2024 11:57 AM MANGLE ROLL OPERATOR Maricruz Anderson MD 07/26/2024 11:58 AM ECG 12 lead Date/Time: 07/26/2024 11:57 AM Performed by: Maricruz Anderson MD Authorized by: Maricruz Anderson MD Quality: Tracing quality: Limited by artifact Comments: EKG Interpretation Interpreted by ED physician in absence of a medical csr Ventricular rate: 137 bpm Rhythm: atrial flutter with variable block [place]: Normal Intervals: normal QRS duration Other findings: [...] by ED physician in absence of a medical csr Ventricular rate: 137 bpm Rhythm: atrial flutter with variable block [place]: Normal Intervals: normal QRS duration Other findings: nonspecific ST changes Interpretation: abnormal EKG, rapid suprventricular tachycardia, no stemi Compared to priors: changes noted as compared to EKG from 07/11/24 Maricruz Anderson MD 07/26/24 1158 us Maricruz Anderson MD ECG ORDERABLES Final Result Performing Organization Address [facility] de Phone Number [facility] * ECG 12-LEAD (07/26/2024 11:55 AM MANGLE ROLL OPERATOR) Narrative [facility] - 07/26/2024 11:55 AM MANGLE ROLL OPERATOR Maricruz Anderson MD 07/26/2024 11:56 AM ECG 12 lead Date/Time: 07/26/2024 11:55 AM Performed by: Maricruz Anderson MD Authorized by: Maricruz Anderson MD Comments: EKG Interpretation Interpreted by ED physician in absence of a medical csr Ventricular rate: 94 bpm Rhythm: nsr [place]: Normal Intervals: normal Other findings: no acute ischemia Interpretation: normal EKG Compared to priors: no longer in a flutter Procedure Note Maricruz Anderson MD - 07/26/2024 11:55 AM CST Procedure ECG 12 lead Date/Time: 07/26/2024 11:55 AM Performed by: Maricruz Anderson MD Authorized by: Maricruz Anderson MD Comments: EKG Interpretation Interpreted by ED physician in absence of a medical csr Ventricular rate: 94 bpm Rhythm: nsr [place]: Normal Intervals: normal Other findings: no acute ischemia Interpretation: normal EKG Compared to priors: no longer in a flutter Maricruz Anderson MD 07/26/24 1156 us Maricruz Andersno MD ECG ORDERABLES Final Result Performing Organization Address [facility]/ZIP Co de Phone Number [facility] * Influenza A/B, RSV, and COVID-19 PCR Nasopharyngeal (07/26/2024 11:45 AM MANGLE ROLL OPERATOR) Pathologist [facility] COVID-[address] [facility] Influenza A RNA Negative Negative [facility] Influenza B RNA Negative Negative [facility] RSV RNA Negative Negative [facility] Comment: Interpretive data: Testing performed by [facility] ([phone]). This test is performed using the wufoo Xpert Xpress CoV-2/Flu/RSV plus assay. This is a multiplex, real-time reverse transcriptase PCR assay intended for the qualitative detection of nucleic acid from SARS-CoV-2, influenza A, influenza B, and respiratory syncytial virus. This assay has been cleared by the [place] Food and Drug administration. The performance characteristics have been verified by the [facility]. Results must be considered in the clinical context, and a negative result does not rule out infection. Interpretive Data last revised 2023 Nasopharyngeal 07/26/2024 11 :45 AM MANGLE ROLL OPERATOR 07/26/2024 11:58 AM MANGLE ROLL OPERATOR Narrative [facility] - 07/26/2024 12:56 PM MANGLE ROLL OPERATOR Is the Patient experiencing symptoms consistent with COVID?->Yes Adri Underwood MD [facility] Final Result [facility] Department [place] [address] [facility] * Troponin I high-sensitivity series (baseline, 2hr, 4hr, 6hr) (07/26/2024 11:45 AM MANGLE ROLL OPERATOR) Pathologist [facility] Trop I hs 10 <=17 ng/L Comment: Interpretive Data For further hscTnI resources including the diagnostic algorithm and an aid in interpretation, copy and paste this link: https://bjhlab.testcatalog.org/show/hsTrop-[email or web address] Current Interpretive Data last revised 2019. Blood 07/26/2024 11:4 5 AM MANGLE ROLL OPERATOR 07/26/2024 11:55 AM MANGLE ROLL OPERATOR Adri Underwood MD LAB BLOOD ORDERABLES Final Resu lt Performing Organization Address [facility] Co de Phone Number [facility] [place] [address] * eGFR (07/26/2024 11:45 AM MANGLE ROLL OPERATOR) Pathologist [facility] eGFR 76 >=60 mL/min/1. 73 m2 Comment: [...] of Race in Diagnosing Kidney Disease, JASN 2020). The CKD-EPI equation should not be used for patients with unstable renal function and has not been validated in children and those over 70. Current interpretive data was last reviewed 2021. Blood 07/26/2024 11:4 5 AM MANGLE ROLL OPERATOR 07/26/2024 11:55 AM MANGLE ROLL OPERATOR Adri Underwood MD LAB BLOOD ORDERABLES Final Resu lt Performing Organization Address [facility]/ZIP Co de Phone Number STEPHANE GUTIERREZ [facility] Department [place] [address] * (ABNORMAL) Differential, auto (07/26/2024 11:45 AM MANGLE ROLL OPERATOR) Pathologist [facility] Neutrophil abs 5.0 1.5 - 6.5 K/cumm Imm gran abs 0.0 0.0 - 0.1 K/cumm [facility] Lymphocyte abs 4.0(H) 0.8 - 3.3 K/cumm [facility] Monocyte abs 1.1(H) 0.2 - 0.8 K/cumm [facility] Eosinophil abs 0.1 0.0 - 0.5 K/cumm [facility] Basophil abs 0.1 0.0 - 0.1 K/cumm [facility] Neutrophil pct 48.2 % [facility] Comment: Interpretive Data Percent cell count reference ranges are not reported, since discordance with absolute values may lead to misinterpretation of CBC data. Current Interpretive Data was last revised on 2017. Imm gran pct 0.4 % [facility] Comment: Interpretive Data Percent cell count reference ranges are not reported, since discordance with absolute values may lead to misinterpretation of CBC data. Current Interpretive Data was last revised on 2017. Lymphocyte pct 38.8 % [facility] Comment: Interpretive Data Percent cell count reference ranges are not reported, since discordance with absolute values may lead to misinterpretation of CBC data. Current Interpretive Data was last revised on 2017. Monocyte pct 10.8 % [facility] Comment: Interpretive Data Percent cell count reference ranges are not reported, since discordance with absolute values may lead to misinterpretation of CBC data. Current Interpretive Data was last revised on 2017. Eosinophil pct 0.7 % [facility] Comment: Interpretive Data Percent cell count reference ranges are not reported, since discordance with absolute values may lead to misinterpretation of CBC data. Current Interpretive Data was last revised on 2017. Basophil pct 1.1 % [facility] Comment: Interpretive Data Percent cell count reference ranges are not reported, since discordance with absolute values may lead to misinterpretation of CBC data. Current Interpretive Data was last revised on 2017. Blood 07/26/2024 11:4 5 AM MANGLE ROLL OPERATOR 07/26/2024 11:55 AM MANGLE ROLL OPERATOR us Adri Underwood MD LAB BLOOD ORDERABLES Final Resu lt [facility] Department [place] [address] * Pro B-type natriuretic peptide (07/26/2024 11:45 AM MANGLE ROLL OPERATOR) NT-proBNP 162 <=300 pg/mL Comment: Interpretive Comments: [...] as advanced age. - References: 1. Tahir SPENCER et.al. Eur Heart J. 2006:27:330-337. 2. Steph RW, Jeffrey SALAS. J. AM Aster Cardiol: Cardiovasc Imag. 2009;2: 216- 225. Interpretive Data Last Revised Date: 2018. Blood 07/26/2024 11:4 5 AM MANGLE ROLL OPERATOR 07/26/2024 11:55 AM MANGLE ROLL OPERATOR us Maricruz Anderson MD LAB BLOOD ORDERABLES Final Result [facility] GUTIERRE[facility] Department of Laboratories [place], [place] [id number] * (ABNORMAL) CBC with auto differential (07/26/2024 11:45 AM MANGLE ROLL OPERATOR) WBC 10.4(H) 3.8 - 9.9 K/cumm Hgb 15.7(H) 11.9 - 15.5 g/dL [facility] Hct 47.6(H) 35.6 - 45.5 % [facility] Plt 290 150 - 400 K/cumm [facility] MPV 9.3 9.1 - 12.3 fL [facility] RBC 5.55(H) 3.90 - 5.20 M/cumm [facility] MCV 85.8 81.3 - 96.4 fL [facility] MCH 28.3 27.1 - 33.3 pg [facility] MCHC 33.0 32.3 - 35.7 g/dL [facility] RDW CV 13.2 11.1 - 14.9 % [facility] RDW SD 41.5 35.7 - 48.1 fL [facility] NRBC abs 0.00 0.00 - 0.01 K/cumm [facility] Blood 07/26/2024 11:4 5 AM MANGLE ROLL OPERATOR 07/26/2024 11:55 AM MANGLE ROLL OPERATOR Adri Underwood MD LAB BLOOD ORDERABLES Final Resu lt [facility] Department [place] [address] * (ABNORMAL) Phosphorus (07/26/2024 11:45 AM MANGLE ROLL OPERATOR) Pathologist [facility] Phosphorus, pl 1.9(L) 2.3 - 4.5 mg/dL Blood 07/26/2024 11:4 5 AM MANGLE ROLL OPERATOR 07/26/2024 11:55 AM MANGLE ROLL OPERATOR Adri Underwood MD LAB BLOOD ORDERABLES Final Resu lt [facility] Department [place] [address] * Magnesium (07/26/2024 11:45 AM MANGLE ROLL OPERATOR) Pathologist [facility] Magnesium 1.8 1.4 - 2.5 mg/dL Blood 07/26/2024 11:4 5 AM MANGLE ROLL OPERATOR 07/26/2024 11:55 AM MANGLE ROLL OPERATOR us Adri Underwood MD LAB BLOOD ORDERABLES Final Resu lt [facility] Department [place] [address] * (ABNORMAL) Comprehensive metabolic panel (07/26/2024 11:45 AM MANGLE ROLL OPERATOR) Sodium 138 135 - 145 mmol/L Potassium, pl 3.6 3.3 - 4.9 mmol/L [facility] Chloride 103 97 - 110 mmol/L [facility] CO2 22 22 - 32 mmol/L [facility] Anion gap 13 2 - 15 mmol/L [facility] BUN 10 6 - 25 mg/dL [facility] Creatinine 0.89 0.60 - 1.10 mg/dL [facility] Glucose 116 70 - 199 mg/dL [facility] Comment: Interpretive Data Fasting glucose >/= 126 [...] 2022. Calcium 9.6 8.5 - 10.3 mg/dL [facility] Bilirubin, total 0.6 0.1 - 1.2 mg/dL [facility] Protein, pl 7.5 6.5 - 8.5 g/dL [facility] Albumin 4.3 3.5 - 5.0 g/dL [facility] Alk phos 134(H) 40 - 130 Units/L [facility] ALT 20 7 - 45 Units/L [facility] AST 19 10 - 45 Units/L [facility] Blood 07/26/2024 11:4 5 AM MANGLE ROLL OPERATOR 07/26/2024 11:55 AM MANGLE ROLL OPERATOR Adri Underwood MD LAB BLOOD ORDERABLES Final Resu lt [facility] Department [place] [address] * Screening Mammogram Bilateral W [place] (03/22/2021 [...] 9:39 AM CDT [facility] Department of Pathology [address] [place] [address] [id number] Final Report with Addendum Note to Patients: [...] and explain the details. Patient Name: DENISE PERAZAGab Address: [address] [place] [address] Gender: F : 1970 (Age: 50) Service: Laboratory Location: Lab [facility] #: [id number] Patient Type: ANNE MARIE Ken Lab Taken: 03/20/2021 Received: 03/20/2021 Accessioned:: 03/21/2021 Reported: 03/22/2021 Physician(s): Tiffani Torres D.O. Diagnosis: Source of Specimen: Imaged Thinprep Pap Test plus HPV - Gravity Prospecting Operator Cytologic Material Specimen Adequacy: - Satisfactory for evaluation; endocervical/transformation zone component present General Category: - Negative for intraepithelial lesion or malignancy Interpretation/Results: - Numerous inflammatory cells present ROWENA Mckenzie(ASCP) Report Electronically Reviewed and Signed Out By ROWENA Mckenzie(ASCP) 03/22/2021 09:39:39 Addenda: HPV Test Interpretation NEGATIVE for types 16, 18, 31, 33, 35, 39, 45, 51, 52, 56, 58, 59, 66 and 68. Test performed utilizing Gen-Probe Aptima assay. ROWENA Davis(ASCP) Report Electronically Reviewed and Signed Out By ROWENA Davis(ASC) 03/21/2021 14:47:29 Specimen(s) Received: A: Imaged Thinprep Pap Test plus HPV - Gravity Prospecting Operator Cytologic Material Clinical History: Last Menstrual Period: [...] determined by the Surgical Pathology Department at [facility] as part of an ongoing quality assurance inspector program and in compliance with federally mandated [...] characteristics determined by the Surgical Pathology Department [facility]. It has not been cleared or approved by the [place]. S. Food and Drug Administration. Emma Bunn DO LAB CYTOLOGY ORDERABLES Final Result from Last 3 Months or Most Recently Relevant to Health Maintenance [place] [address] [place] [address] [facility] Advance Directives For more information, please contact: [phone] * Full Code (Latest Code Status on File) Date Activated Date Inactivated Comments 03/02/2019 6:55 PM 03/08/2019 10:23 PM Care Teams Truck Loader And Unloader Relationship Specialty Start Date End Date Pam Fabian NP [address] [place] [address] PCP - General Nurse Practitioner 02/21/24 [place] [id number] [address] [place] [address] Consulting Physician Pulmonary Disease 03/08/19
--- NOTE | 2024-10-14 19:13 | ED.EXTPRO ---
HPI - Extremity Problem General Chief complaint: Extremity Problem,Nontraumatic Stated complaint: right hand swollen Time Seen by Provider: 10/14/24 19:13 Source: patient and RN notes reviewed Mode of arrival: ambulatory Limitations: no limitations History of Present Illness HPI Narrative: 54-year-old female presents with concern for right hand pain and swelling in the 1st and 2nd digit. Reports it has been going on 3 weeks. She denies any injury or trauma. She has been wearing hand brace without relief. She has been taking Tylenol. She denies decreased strength or sensation. Reports painful range of motion with 1st and 2nd digits. MD Complaint: extremity swelling Related Data Home Medications ?Medication ?Instructions ?Recorded ?Confirmed ?Last Taken ?Type flecainide 50 mg tablet mg 10/14/24 Unknown History hydroxyzine pamoate 50 mg capsule mg 10/14/24 Unknown History lamotrigine 150 mg tablet mg 10/14/24 Unknown History metoprolol tartrate 50 mg tablet mg 10/14/24 Unknown History quetiapine 100 mg tablet mg 10/14/24 Unknown History rivaroxaban 20 mg tablet (Xarelto) mg 10/14/24 Unknown History sertraline 100 mg tablet mg 10/14/24 Unknown History topiramate 25 mg tablet mg 10/14/24 Unknown History Allergies Allergy/AdvReac Type Severity Reaction Status Date / Time No Known Allergies Allergy Verified 10/14/24 19:01 Review of Systems Review of Systems: CONSTITUTIONAL: Denies malaise, chills, sweats, or fever. CARDIOVASCULAR: Denies chest pain, palpitations, or edema. RESPIRATORY: Denies cough or dyspnea. SKIN: Denies rash or itching, bruising, redness MUSCULOSKELETAL: Reports pain, swelling in the 1st and 2nd digits of the right hand NEUROLOGIC: Denies numbness, weakness All systems reviewed & are unremarkable except as noted in HPI and below PMFSH Comments At time of signature, agree with nursing past medical, surgical, social and family history. There is no relevant family history pertinent to the presenting complaint Exam Narrative: GENERAL: Well-appearing, well-nourished, and in no acute distress. HEAD: Normocephalic EYES: PERRLA, conjunctivae clear NECK: Supple. CHEST: Speaks in full sentences. No respiratory distress. HEART: Regular rate and rhythm. Normal and equal peripheral pulses. EXTREMITIES: Right hand and digits of hand have normal strength and sensation. 5/5 strength with digit flexion, extension. Range of motion normal. No clubbing, cyanosis, or edema noted. First and 2nd digit tenderness. Skin intact. Normal digital cascade with flexion of fingers, median, ulnar and radial nerve intact. Normal sensation of each side of finger. Can perform 'okay' sign, 'cross over finger test of index and middle fingers' and 'thumbs up' sign. No scissoring. Normal thumb opposition. Good capillary refill and radial pulse. Distal capillary refill less than 3 seconds. Decreased right remote sensing technologist strength Patient is right hand dominant SKIN: Warn, dry, intact, pink. No rash NEURO: Alert and oriented x3. PSYCH: Normal mood and affect Course Course Emergency Course: Patient is aware of diagnosis, understands and agrees to treatment plan. Anticipatory guidance given. Patient agrees to follow-up as directed and is aware of reasons to seek care at the emergency department. Portions of this record may have been created with voice recognition software Level of Care: Express Care Visit Vital Signs Vital signs: Vital Signs Temperature 97.2 F L 10/14/24 18:56 Pulse Rate 62 10/14/24 18:56 Respiratory Rate 16 10/14/24 18:56 Blood Pressure 124/62 10/14/24 18:56 Pulse Oximetry 94 10/14/24 18:56 Oxygen Delivery Room Air 10/14/24 18:56 Temperature 97.2 F L 10/14/24 18:56 Pulse Rate 62 10/14/24 18:56 Respiratory Rate 16 10/14/24 18:56 Blood Pressure 124/62 10/14/24 18:56 Pulse Oximetry 94 10/14/24 18:56 Oxygen Delivery Room Air 10/14/24 18:56 Reviewed. Critical Care Time Critical Care Time Critical Care Time: No Discharge Plan Discharge Clinical Impression: Tendinitis Patient Disposition: Home Condition: Stable Instructions: Tendinitis (ED) Additional Instructions: Avoid activities that cause pain until the pain subsides. Ice to the area 20-30 minutes 4-6 times a day Elevate above heart Orthopedic splint as directed for comfort for the next 5-7 days Tylenol for lesser pain Prednisone as directed Follow up with your primary care provider if the condition is not improving within 1 week. If the condition worsens with numbness, tingling, decrease sensation with weakness seek treatment in the emergency room immediately. Patient Language: Turkmen Prescriptions: New prednisone 20 mg tablet 40 mg PO DAILY 5 Days Qty: 10 0RF No Action lamotrigine 150 mg tablet sertraline 100 mg tablet hydroxyzine pamoate 50 mg capsule topiramate 25 mg tablet quetiapine 100 mg tablet flecainide 50 mg tablet metoprolol tartrate 50 mg tablet Xarelto 20 mg tablet Follow-up/Referrals: Fabian,Pam Ferro APN [Primary Care Provider] - Time of Disposition: 19:20
== END 2024-10-14 19:23 | disposition home or self-care (01) ==
PROVIDERS: Emergency Provider Nurse Practitioner; PCP Nurse Practitioner Family
DX: M77.8 Other enthesopathies, not elsewhere classified (principal); I48.91 Unspecified atrial fibrillation; Z85.41 Personal history of malignant neoplasm of cervix uteri
CPT/HCPCS: 99203; G0463